=== PATIENT | female | born 1975 | race Caucasian/White ===

== ENCOUNTER → 2019-05-20 | Outpatient (CLI) | payer BC, MEDICAID, OTHER ==
[2014-01-14 22:56] VITALS: BP 180/84
[~2019-05-20] MED LIST: ALPR1TAB2 PO; ATOR40TA59 PO; BUPR150T6 PO; CITA40TA5 PO; FENO160T PO; HYDR12.575 PO; INSU100V31 SQ; INSU100V8 SQ; LISI-130 PO; METF100010 PO; OMEG1CAP6 PO; [UNRECOGNIZED DRUG - CODE] SQ
--- NOTE | 2019-05-22 13:05 | KCIC ---
Bilateral digital screening mammograms: Reason for examination: Routine screening. Comparison is made to previous study dated 04/22/2015. Interpretation was made with the benefit of CAD. The skin and nipples show no abnormalities. No abnormal axillary lymph nodes are seen. The breast parenchyma shows scattered fibroglandular density. (Breast density: Category B.) There continues to be some prevertebral asymmetry in the upper left breast posteriorly on oblique view which is unchanged. There are small nodular parenchymal densities seen in the right breast on oblique view 4 cm deep to the nipple and measuring 5.7 mm in size and in the left breast on oblique view 13.5 cm deep to the nipple at the 3:00 C position measuring 5.4 mm in size. Further evaluation with ultrasound is recommended. There are no other dominant masses, suspicious calcifications or architectural distortions. Impression: Small nodular densities seen bilaterally. Recommend further evaluation with ultrasound. BI-RADS Category 0: Incomplete. Needs additional imaging evaluation. "Our facility is accredited by the [employer] Mammography [employer]." This patient's information has been entered into a reminder system for the patient to be notified with the results of her examination and a target date for the next mammogram. Electronically signed by: Jennifer Cristobal MD (05/22/2019 1:02 PM) [id number]
== END | disposition home or self-care (01) ==
LOC: KCIC MAMMO 11:56
PROVIDERS: ATTEND Nurse Practitioner
DX: Z12.31 Encounter for screening mammogram for malignant neoplasm of breast (principal)
CPT/HCPCS: 77067

== ENCOUNTER → 2019-06-05 | Outpatient (CLI) | payer MEDICAID ==
[2014-01-14 22:56] VITALS: BP 180/84
--- NOTE | 2019-06-05 09:23 | KCIC ---
Bilateral breast ultrasound: Reason for examination: Nodular densities on screening mammogram. Comparison is made to mammographic exam dated 05/20/2019. Bilateral whole breast ultrasound including evaluation of all 4 quadrants and the retroareolar and axillary regions of both breasts was performed. The right breast shows no discrete cystic or solid nodule. No abnormal appearing lymph nodes are seen in the right axilla. The left breast shows a hypoechoic lesion at the 3:00 position 13 cm from the nipple measuring 5.3 mm in greatest dimension which has some increased echogenicity centrally which may reflect a fatty hilum and this probably represents an intramammary lymph node. No other cystic or solid lesions are seen in the left breast. No abnormal appearing lymph nodes are seen in the axilla. IMPRESSION: No abnormality seen in the right breast. 5.3 mm nodule consistent with a probable intramammary lymph node at the 3:00 position of the left breast. Recommend 6 month follow-up with ultrasound. BI-RADS Category 3: Probably Benign. "Our facility is accredited by the [employer] Mammography [employer]." This patient's information has been entered into a reminder system for the patient to be notified with the results of her examination and a target date for the next mammogram. Electronically signed by: Jennifer Cristobal MD (06/05/2019 9:20 AM) [id number]
== END | disposition home or self-care (01) ==
LOC: KCIC US 08:18
PROVIDERS: ATTEND Nurse Practitioner
DX: N64.89 Other specified disorders of breast (principal)
CPT/HCPCS: 76641

== ENCOUNTER → 2020-03-08 | Outpatient (CLI) | payer MEDICAID ==
[2014-01-14 22:56] VITALS: BP 180/84
--- NOTE | 2020-03-08 15:44 | KCIC ---
Bilateral breast ultrasound: Reason for examination: Follow-up for nodules. Comparison is made to previous ultrasound examination dated 06/05/2019 and mammographic exam dated 05/20/2019. Bilateral whole breast ultrasound including evaluation of all 4 quadrants and the retroareolar and axillary regions of both breasts was performed. The right breast shows a small 4 x 4.5 mm hypoechoic fibrocystic type lesion at the 9:00 position 4 cm from the nipple. No other cystic or solid nodules are seen. The left breast continues to show 2 small fibrocystic type nodules at the 3:00 position 12 cm from the nipple with the largest measuring 3.5 mm in greatest dimension. No other cystic or solid nodules are seen. IMPRESSION: Benign-appearing fibrocystic type lesions at the 9:00 position of the right breast and 3:00 position of the left breast. No suspicious abnormality seen. Recommend 6 month follow-up with ultrasound which can be performed at the time of bilateral mammograms. BI-RADS Category 3: Probably Benign. "Our facility is accredited by the [employer] Mammography [employer]." This patient's information has been entered into a reminder system for the patient to be notified with the results of her examination and a target date for the next mammogram. Electronically signed by: Jennifer Cristobal MD (03/08/2020 3:41 PM) [id number]
== END ==
LOC: KCIC US 13:34
PROVIDERS: ATTEND Nurse Practitioner
DX: N64.89 Other specified disorders of breast (principal)
CPT/HCPCS: 76641